=== PATIENT | male | born 1995 | race Caucasian/White ===

== ENCOUNTER 2018-10-31 12:02 | Emergency (ER) | payer OTHER, SELFPAY ==
[2018-10-31] VITALS (7 sets, daily range): BP systolic 112–115; BP diastolic 59–60; PULSE 63–74; RESP 10–20; TEMP 37.2; O2SAT 97–98
--- NOTE | 2018-10-31 12:13 | ED.GENADUL_ITS ---
Discharge Plan Disposition Patient Disposition: [facility] Condition: Stable Discharge Details Chief Complaint: Chest Pain Clinical Impression: Chest pain Primary Care Provider: None,None ED Provider: Des Hernadez Home Meds and New Rx's Prescriptions: No Action No Known Home Meds RF: 0 Discharge Instructions Instructions: Chest Pain (ED) Medical Decision Making 23 yo male with no chronic medical problems [facility] from the [facility] with complaints of chest pain. He has had chest pain for 3 years, denies radiation of pain, sob, diaphoresis. Has pain when I push on his sternum. [facility] which read incomplete rbbb and was sent here for an eval. Given pain for 3 years and ekg here showing no concerning findings do not feel w/u indicated at this time given no pain unless I push on her chest and low likelihood given age of acs. Wells low and perc negative so doubt PE. HAs normal vascular exam and no trearing back pain so doubt dissection, clear lungs without pleuritic pain so doubt pna or ptx. Has no fevers or murmurs or recent ivdu so doubt endocarditis and has no stigmata of this. Will have him take aspirin prn Differential Diagnosis costochondriitis, pleurisy ECG Data Attestation: I personally reviewed and interpreted this ECG (s) as follows: Prior ECG tracings: not available for review Interpretation: sinus rhythm, rate of 61, pr 130, no acute st t wave ischemic findings HPI General Mode of arrival: ambulatory . Date/Time Provider Initiated Documentation: 10/31/18 12:12 . Limitations to Documentation: no limitations . Information obtained by: patient . History of Present Illness 23 year old M presents to the emergency department with the chief complaint of chest pain, described as mild, with intensity rated at 2. Quality is described as aching, and is localized to the chest. Patient reports no radiation. Patient started experiencing this year(s) (3) and it has been constant and intermittent. No relieving factors improve symptom(s), No exacerbating factors reported . Patient notes no other symptoms.. Patient did receive the following treatments prior to arrival, none Related Data Home Medications Medication Instructions Recorded Confirmed Unknown [No Known Home Meds] 10/31/18 10/31/18 Allergies Allergy/AdvReac Type Severity Reaction Status Date / Time No Known Allergies Allergy Unverified 10/31/18 12:15 Review of Systems Review of Systems All systems reviewed & are unremarkable except as noted in HPI and below Constitutional Denies chills, Denies fever(s) and Denies weakness Cardiovascular Denies dyspnea Respiratory Denies cough and Denies dyspnea Gastrointestinal Denies abdominal pain, Denies nausea and Denies vomiting Integumentary/Breasts Denies rash Neurologic Denies weakness PFSH Medical History PTSD (post-traumatic stress disorder) (Acute) Alcohol abuse (Chronic) Social History Smoking/Tobacco Use Status: Current every day Tobacco Type: cigarettes and smokeless tobacco Alcohol Intake: current Alcohol Intake frequency: 3 or more drinks per day Alcohol type: hard liquor Drug use: Occasionally Substance use type: marijuana and crack/cocaine Do you feel safe at home: Yes Do you feel safe in your relationship?: Yes Additional Social history: incarcerated currently Exam Const General: no acute distress Orientation: alert HENMT Head: normal to inspection Ears: external ears normal General nose exam: external nose normal Mouth: moist mucous membranes Eyes General: appearance normal, both eyes and all related structures Neck Neck: normal visual inspection Resp Effort & Inspection: normal respiratory effort and able to speak in complete sentences Cardio Rate: regular rate Skin General skin exam: no rashes or lesions noted Neuro General: alert and oriented x3 Extrem General: normal to inspection Psych Mental Status: mental status grossly normal
== END 2018-10-31 12:37 | disposition home or self-care (01) ==
LOC: ER 12:42
PROVIDERS: Emergency Provider Emergency Medicine
DX: G89.29 Other chronic pain (principal); R07.9 Chest pain, unspecified
CPT/HCPCS: 93005; 99285; 93010; 99283